=== PATIENT | female | born 1965 ===

== ENCOUNTER 2018-02-28 14:57 | Emergency (ER) | payer MEDICAID ==
[2018-02-28 15:05] VITALS: BP 116/89; PULSE 77; RESP 16; TEMP 98.2; O2SAT 98
--- NOTE | 2018-02-28 16:21 | ED PDOC ---
HPI: CCC, URI, Sore Throat Time Seen by Provider: 02/28/18 15:44 Chief Complaint (Nursing): ENT Problem Chief Complaint (Provider): ENT Problem History Per: Patient History/Exam Limitations: no limitations Onset/Duration Of Symptoms: Days (x 2 weeks) Location Of Pain: Throat Associated Symptoms: Sore Throat Additional Complaint(s): 52 year old female presents with 2 weeks of sore throat and associated cough. Patient quit smoking 8 months ago. Regularly takes Depakote and neurontin for management of depression. Denies history of asthma and offers no other complaints. PMD:Dr. Al Almeida Past Medical History Reviewed: Historical Data, Nursing Documentation, Vital Signs Vital Signs: Last Vital Signs Temp 98.2 F 02/28/18 15:03 Pulse 77 02/28/18 15:03 Resp 16 02/28/18 15:03 BP 116/89 02/28/18 15:03 Pulse Ox 98 02/28/18 16:44 - Medical History PMH: Anxiety, Bipolar Disorder, Depression Denies: Diabetes, Hepatitis, HIV, HTN, Chronic Kidney Disease, Seizures, Sexually Transmitted Disease - Surgical History Surgical History: No Surg Hx - Family History Family History: States: Unknown Family Hx - Home Medications Home Medications: Ambulatory Orders Medication Instructions Recorded Prazosin HCl [Minipress] 1 mg PO HS #30 cap 03/09/16 Atomoxetine HCl [Strattera] 80 mg PO DAILY #0 cap 03/10/16 Divalproex [Depakote DR(*BID*)] 500 mg PO BID #60 tcp 03/10/16 Gabapentin [Neurontin] 300 mg PO TID #90 cap 03/10/16 QUEtiapine [SEROquel] 400 mg PO HS #30 tab 03/10/16 QUEtiapine [Seroquel] 100 mg PO DAILY #30 tab 03/10/16 Cyclobenzaprine [Cyclobenzaprine 10 mg PO Q8 PRN #12 tab 05/11/16 HCl] Ibuprofen [Motrin] 600 mg PO TID PRN #30 tab 05/11/16 Naproxen 375 mg PO Q8 PRN #21 tablet 02/28/18 - Allergies Allergies/Adverse Reactions: Allergies Allergy/AdvReac Type Severity Reaction Status Date / Time No Known Allergies Allergy Verified 02/28/18 15:02 Review of Systems ROS Statement: Except As Marked, All Systems Reviewed And Found Negative Respiratory: Positive for: Cough Physical Exam - Reviewed Nursing Documentation Reviewed: Yes Vital Signs Reviewed: Yes - Physical Exam Appears: Positive for: Non-toxic, No Acute Distress Head Exam: Positive for: ATRAUMATIC, NORMAL INSPECTION, NORMOCEPHALIC Skin: Positive for: Normal Color, Warm, Dry Eye Exam: Positive for: EOMI, Normal appearance, PERRL ENT: Positive for: Normal ENT Inspection. Negative for: Pharyngeal Erythema, Tonsillar Exudate, Tonsillar Swelling, Other (hyphema) Neck: Positive for: Normal, Painless ROM, Supple Cardiovascular/Chest: Positive for: Regular Rate, Rhythm. Negative for: Murmur Respiratory: Positive for: CNT, Normal Breath Sounds Gastrointestinal/Abdominal: Positive for: Normal Exam, Soft. Negative for: Tenderness Extremity: Positive for: Normal ROM. Negative for: Deformity Neurologic/Psych: Positive for: Alert, Oriented (x 3). Negative for: Motor/ Sensory Deficits - ECG O2 Sat by Pulse Oximetry: 98 (RA) Pulse Ox Interpretation: Normal - Progress ED Course And Treament: RAPID STREP: NEGATIVE Medical Decision Making Medical Decision Makin:44 --rapid strep Scribe Attestation: Documented by Lorraine Lindo, acting as a scribe for Terese Smith PA-C Provider Scribe Attestation: All medical record entries made by the Scribe were at my direction and personally dictated by me. I have reviewed the chart and agree that the record accurately reflects my personal performance of the history, physical exam, medical decision making, and the department course for this patient. I have also personally directed, reviewed, and agree with the discharge instructions and disposition. Disposition - Clinical Impression Clinical Impression: Sore throat - Patient ED Disposition Is Patient to be Admitted: No - Disposition Disposition: Routine/Home Disposition Time: 16:49 Condition: FAIR Prescriptions: Naproxen 375 mg PO Q8 PRN #21 tablet PRN Reason: Pain, Moderate (4-7) Instructions: Sore Throat, Adult (DC)
== END 2018-02-28 17:06 | disposition home or self-care (01) ==
LOC: H.ER 14:57
DX: J02.9 Acute pharyngitis, unspecified (principal)

== ENCOUNTER 2018-07-19 15:40 | Emergency (ER) | payer OTHER ==
[2018-07-19 16:07] VITALS: BP 119/75; PULSE 65; RESP 16; TEMP 98.2; O2SAT 98
--- NOTE | 2018-07-19 17:59 | ED PDOC ---
Lower Extremity Pain/Injury Time Seen by Provider: 07/19/18 16:11 Chief Complaint (Nursing): Lower Extremity Problem/Injury Chief Complaint (Provider): Lower Extremity Problem/Injury History Per: Patient History/Exam Limitations: no limitations Onset/Duration Of Symptoms: Days Current Symptoms Are (Timing): Still Present Additional Complaint(s): 53 year old female with a past medical history of bipolar disorder who is presenting to the ED for evaluation of left knee pain onset 2 days ago. Patient states that suddenly she began feeling knee pain associated with swelling. She denies any fall or trauma but admits that she has noticed knee buckling more frequently over the past few weeks but was not in any pain until 2 days ago. Patient states that she has not taken any pain medications prior to arrival and also denied any fevers, chills, numbness, or tingling in feet. PMD: Darshan Barragan Past Medical History Reviewed: Historical Data, Nursing Documentation, Vital Signs Vital Signs: Last Vital Signs Temp 98.2 F 07/19/18 16:01 Pulse 65 07/19/18 16:01 Resp 16 07/19/18 16:01 BP 119/75 07/19/18 16:01 Pulse Ox 98 07/19/18 16:01 - Medical History PMH: Anxiety, Bipolar Disorder, Depression Denies: Diabetes, Hepatitis, HIV, HTN, Chronic Kidney Disease, Seizures, Sexually Transmitted Disease - Surgical History Other surgeries: Tubal Ligation - Family History Family History: States: Unknown Family Hx - Social History Current smoker - smoking cessation education provided: Yes Alcohol: Social Drugs: Cannabis - Home Medications Home Medications: Ambulatory Orders Medication Instructions Recorded Prazosin HCl [Minipress] 1 mg PO HS #30 cap 03/09/16 Atomoxetine HCl [Strattera] 80 mg PO DAILY #0 cap 03/10/16 Divalproex [Depakote DR(*BID*)] 500 mg PO BID #60 tcp 03/10/16 Gabapentin [Neurontin] 300 mg PO TID #90 cap 03/10/16 QUEtiapine [SEROquel] 400 mg PO HS #30 tab 03/10/16 QUEtiapine [Seroquel] 100 mg PO DAILY #30 tab 03/10/16 Cyclobenzaprine [Cyclobenzaprine 10 mg PO Q8 PRN #12 tab 05/11/16 HCl] Ibuprofen [Motrin] 600 mg PO TID PRN #30 tab 05/11/16 Naproxen 375 mg PO Q8 PRN #21 tablet 02/28/18 Ibuprofen [Motrin Tab] 800 mg PO Q6 PRN 7 Days tab 07/19/18 - Allergies Allergies/Adverse Reactions: Allergies Allergy/AdvReac Type Severity Reaction Status Date / Time No Known Allergies Allergy Verified 07/19/18 16:01 Review of Systems ROS Statement: Except As Marked, All Systems Reviewed And Found Negative Constitutional: Negative for: Fever, Chills Musculoskeletal: Positive for: Leg Pain (knee pain ) Neurological: Negative for: Numbness Physical Exam - Reviewed Nursing Documentation Reviewed: Yes Vital Signs Reviewed: Yes - Physical Exam Appears: Positive for: Non-toxic, No Acute Distress Head Exam: Positive for: ATRAUMATIC, NORMAL INSPECTION, NORMOCEPHALIC Skin: Positive for: Normal Color, Warm, DRY Extremity: Positive for: Other (left knee: (+) edema superolateral and inferior to patella tenderness on palpation no ecchymosis or deformity, no anterior knee pain normal flexion and extension DP 2+ normal flexion and extension of left hip and ankle) Neurologic/Psych: Positive for: Alert, Oriented. Negative for: Motor/Sensory Deficits - ECG O2 Sat by Pulse Oximetry: 98 (RA) Pulse Ox Interpretation: Normal Medical Decision Making Medical Decision Making: Time: 17:19 Plan: --Left knee x-ray --Motrin 800 mg PO Scribe Attestation: Documented by, Makeda Calvert acting as a scribe for Polly Bartlett PA-C. Provider Scribe Attestation: All medical record entries made by the Scribe were at my direction and personally dictated by me. I have reviewed the chart and agree that the record accurately reflects my personal performance of the history, physical exam, medical decision making, and the department course for this patient. I have also personally directed, reviewed, and agree with the discharge instructions and disposition. Knee x-ray read by me: no acute fracture or dislocation. Patient's pain has improved somewhat. Stable for d/c home. Disposition - Clinical Impression Clinical Impression: Knee pain, acute - Patient ED Disposition Is Patient to be Admitted: No Counseled Patient/Family Regarding: Studies Performed, Need For Followup, Rx Given - Disposition Referrals: Yvan Ramirez MD [Staff Provider] - Disposition: Routine/Home Disposition Time: 19:29 Condition: STABLE Additional Instructions: Take Tylenol or Ibuprofen for pain. F/u with orthopedist for further evaluation with possible MRI. Prescriptions: Ibuprofen [Motrin Tab] 800 mg PO Q6 PRN 7 Days tab PRN Reason: Pain, Moderate (4-7) Instructions: Knee Pain (DC) Forms: [employer] (Malian) Print Language: OMANI
--- NOTE | 2018-07-20 13:54 | RAD ---
Date of service: 07/19/2018 PROCEDURE: Left Knee Radiographs. HISTORY: Pain. COMPARISON: None. FINDINGS: BONES: Normal. No fracture. JOINTS: Normal. No osteoarthritis. JOINT EFFUSION: None. OTHER FINDINGS: None. IMPRESSION: Normal radiographs of the left knee. Concordant results with the preliminary interpretation rendered by the emergency department physician procedure.
== END 2018-07-19 19:29 | disposition home or self-care (01) ==
LOC: H.ER 15:40
DX: M25.562 Pain in left knee (principal); F17.200 Nicotine dependence, unspecified, uncomplicated; Z86.59 Personal history of other mental and behavioral disorders